=== PATIENT | male | born 1960 | race Caucasian/White ===

== ENCOUNTER 2019-07-16 06:00 | Day surgery (SDC) | payer BC ==
[~2019-07-16 06:00] MED LIST: CEFAZOLIN 2 Gram 2 GM/50 ML BAG IVPB ONE; FAMOTIDINE 20MG TABLET PO ONE; MECLIZINE 25 MG TABLET PO ONE; METOCLOPRAMIDE 10 MG TABLET PO ONE
[2019-07-16] MEDS ORDERED: EPHEDRINE SULFATE 50 MG/ML ML IV ONE (06:01)
[2019-07-16] MEDS ORDERED: PROPOFOL 10 MG/ML VIAL IV ONE (06:01)
[2019-07-16] MEDS ORDERED: DEXAMETHASONE 4 MG/ML 1ML VIAL IVP ONE (06:01)
[2019-07-16] MEDS ORDERED: LIDOCAINE 2% MDV (20MG/ML) 20ML VIAL IV ONE (06:01)
[2019-07-16] MEDS ORDERED: MIDAZOLAM HCL 2MG/2ML VIAL IV ONE (06:01)
[2019-07-16] MEDS ORDERED: ROPIVACAINE HCL (NAROPIN) /PF 5MG/ML 20ML VIAL IV ONE (06:01)
[2019-07-16] MEDS ORDERED: RINGERS SOLUTION,LACTATED 1,000 ML IV ONE ×2 (06:40→08:15)
[2019-07-16] MEDS ORDERED: TRANEXAMIC ACID 1,000 MG/10 ML ML IV ONE ×2 (08:28→11:30)
[2019-07-16] MEDS ORDERED: ZOLPIDEM TARTRATE 5 MG TABLET PO PRN (11:19)
[2019-07-16] MEDS ORDERED: SENNOSIDES/DOCUSATE SODIUM UD CAPSULE PO PRN (11:20)
[2019-07-16] MEDS ORDERED: MAGNESIUM HYDROXIDE 30 ML UDC PO PRN (11:21)
[2019-07-16] MEDS ORDERED: AL HYDROX/MAG HYDROX 30ML UD PO PRN (11:23)
[2019-07-16] MEDS ORDERED: HYDROCODONE/APAP 5/325MG TABLET PO PRN ×2 (11:30)
[2019-07-16] MEDS ORDERED: TRAMADOL HCL 50 MG TABLET PO PRN ×2 (11:30)
[2019-07-16] MEDS ORDERED: ONDANSETRON HCL IV 4 MG/2 ML VIAL IVP PRN (11:30)
[2019-07-16] MEDS ORDERED: ACETAMINOPHEN 325 MG TAB PO PRN (11:30)
[2019-07-16] MEDS ORDERED: CEFAZOLIN 2 Gram 2 GM/50 ML BAG IVPB SCH (11:30)
[2019-07-16] MEDS ORDERED: METOCLOPRAMIDE HCL 10 MG/2 ML VIAL IVP PRN (11:30)
[2019-07-16] MEDS ORDERED: DIPHENHYDRAMINE HCL 25 MG CAPSULE PO PRN (11:30)
[2019-07-16] MEDS: HYDROMORPHONE HCL 2 MG/ML VIAL IV PRN ×2 (11:37→14:28)
[2019-07-16] MEDS: OXYCODONE HCL/APAP 5MG/325MG TABLET PO PRN ×3 (11:39→18:38)
[2019-07-16] MEDS: RINGERS SOLUTION,LACTATED 1,000 ML IV SCH ×2 (13:32→23:35)
[2019-07-16] MEDS ORDERED: FLU VAC QS 2019-20 (INPT, 6MO+) 60MCG/0.5ML IM ONE (13:41)
--- NOTE | 2019-07-16 14:37 | Rehab Evaluation ---
Patient Information - Patient Information Diagnosis: R Knee DJD Ordered Treatment: PT Evaluate and Treat Status: Initial Evaluation Surgery: Yes (R TKA) Date of Surgery: 07/16/19 Past Medical/Surgical Hx: PAST MEDICAL/SURGICAL HISTORY Past Surgical History ORAL SX C SCOPE PMH - Respiratory Hx Respiratory Disorders No PMH - Cardiovascular Hx Cardiovascular Disorders Yes Hx Hypertension Yes: WELL CONTROLLED WITH MEDS Exercise Tolerance Good PMH - Neuro Hx Neurological Disorders No PMH - GI Hx Gastrointestinal Disorders No PMH - Hx Genitourinary Disorders No PMH - Endocrine Hx Endocrine Disorders No PMH - Musculoskeletal Hx Musculoskeletal Disorders Yes Hx Arthritis Yes: ALL JOINTS SPINE RA PMH - Psych Hx Psychiatric Problems No PMH - Hematology/Oncology Hx Hematology/Oncology No Disorders Premorbid Status: Detail (Patient was independent in ADLs prior to TKA procedure.) Social History: Detail (Patient lives in a 2 story home with his spouse. There is a flight of stairs to the upstairs but patient stated that he will be staying downstairs until he is comfortable with climbing and descending a full flight of stairs. There are 4 steps to enter at the front of the house with a railing on the R and L, with one reachable at a time. In the bathroom, there is a hand held shower head available, the toilet is of standard height, and there are no grab bars present. Patient will have assistance at home with ADLs and transportation following surgery.) Precautions: [place], Fall, Other (WBAT on the R LE) - Time With Patient Total Time Spent With Patient (Min): 30 Treatment Procedures: Detail (Initial Evaluation; low complexity The patient was left in the bedside chair with his call light and bedside table within reach. The patient's spouse was in the room with him and the nursing staff was notified of his position.) Subjective Information - Subjective Information Per Patient (Patient stated that he had 4/10 pain in his R knee at the time of the evaluation.) Objective Data - Pain Pain Present: Yes Pain Scale Used: Numeric (1 - 10) (4/10) - Mental Status Patient Orientation: Oriented x3 - Visual Perception Appears within normal limits for therapeutic activities - ROM Not within normal limits (R Knee ROM limited as expected s/p R TKA procedure. R hip and ankle, and L LE ROM is within functional limits.) - Strength/Tone Not within normal limits (R knee strength limited as expected s/p R TKA procedure. R hip and ankle, and L LE strength is within functional limits.) - Bed Mobility Independent (Patient was not assessed for bed mobility as he was in the bedside chair when PT staff arrived and requested to go back to the bedside chair following treatment. Patient was able to independently move in and out of the chair.) - Transfers Independent (Patient was independent in transferring from sit to stand and stand to sit.) - Balance Balance Sitting: Good Balance Standing: Good - Sensation Intact - Gait Detail (Patient was able to ambulate 100 feet with a front wheeled walker using WBAT on the R LE. Supervision of 1 was needed during ambulation. Patient needed verbal cuing for keeping his feet within the walker space during gait and for not pushing the walker too far out in front of him.) Therapy Assessment - Therapy Assessment Detail (Patient presents with decreased range of motion and strength in the right knee that make him a good candidate for inpatient physical therapy. Patient will progress toward meeting goals by the time of discharge.) Patient Education - Patient Education Teaching Topic: Exercise/Activity (Reviewed patient's pre-operative exercises; he demonstrated good understanding.) Response: Return Demonstration Teaching Method: Discussion Teaching Recipient: Patient Barriers To Learning: None Problem List - Problem List Physical Therapy Problem List: Detail (1. Decreased R knee ROM 2. Decreased R knee strength 3. Pain in the R knee 4. Decreased ability to complete stair training) Goals - Goals Physical Therapy Goals: 1. Patient will be independent in his HEP to help improve strength and ROM of the R knee needed to be able to complete ADLs. 2. Patient will be able to ascend and descend 4 stairs with proper technique to be able to enter and leave his home. 3. Patient will be able to ambulate community distances with a 2-wheeled walker for endurance with ambulation in the community. Prognosis - Prognosis Good Plan - Plan Physical Therapy Plan: Patient will be seen for 1-2 sessions for gait training, stair training, therapeutic exercise, and HEP instruction.
[2019-07-16] MEDS: CEFAZOLIN 2 Gram 2 GM/50 ML BAG IVPB SCH (17:02)
[2019-07-16] MEDS: ASPIRIN 325 MG TAB ENTERIC-COATED PO SCH (21:26)
[2019-07-16] MEDS ORDERED: LISINIPRIL PO SCH (22:00)
[2019-07-16] MEDS ORDERED: MELOXICAM 15 MG PO SCH (22:00)
[2019-07-16] MEDS ORDERED: HYDROCHLOROTHIAZIDE 12.5 MG PO SCH (22:00)
[2019-07-17] MEDS: OXYCODONE HCL/APAP 5MG/325MG TABLET PO PRN ×3 (00:20→12:48)
[2019-07-17] MEDS: CEFAZOLIN 2 Gram 2 GM/50 ML BAG IVPB SCH ×2 (00:21→10:45)
[2019-07-17] MEDS: RINGERS SOLUTION,LACTATED 1,000 ML IV SCH (05:22)
[2019-07-17 06:49] LABS: HEMATOCRIT 33.9 % (42.0-52.0); HEMOGLOBIN 10.4 gm/dl (14.0-18.0); MEAN CELL VOLUME 91.4 fl (81-97); MEAN CORPUSCULAR HGB CONC 30.7 g/dl (32-36); MEAN PLATELET VOLUME 9.6 fl (7.4-10.4); PLATELET COUNT 174 K/uL (130-400); RED BLOOD COUNT 3.71 M/uL (4.40-5.70); RED CELL DISTRIBUTION WIDTH 13.3 % (11.5-14.5); WHITE BLOOD COUNT W/O DIFF 8.2 K/uL (4.2-12.2)
--- NOTE | 2019-07-17 09:47 | Physical Therapy Tx Note ---
Physical Therapy Tx Note - Treatment Note Total Time Spent With Patient: 30 Physical Therapy Tx Note: Detail (Patient stated that he a little pain in his R knee today and that it hurt at the upper part of the knee near the distal part of the quadricep. Treatment today consisted of ascending and descending a flight of 3 and a flight of 7 stairs. Patient used a cane and the wall when negotiating stairs to practice the way his stairs at home are setup. Supervision of 1 was needed to complete stair training. Patient's spouse was present during stair training to observe proper technique and to help patient at home if needed. Patient was able to ambulate indpendently 200+ feet with front wheeled walker and WBAT on the R LE. Patient's HEP was reviewed and he understood and demonstrated exercises correctly. Patient has met all inpatient goals at this time. He was left in the bedside chair with the bedside table and call light within reach. The patient's spouse was in the room with him and the nursing staff was notified of his position.) Physical Therapy Problem List: Detail (1. Decreased R knee ROM 2. Decreased R knee strength 3. Pain in the R knee 4. Decreased ability to complete stair training) Physical Therapy Goals: 1. Patient will be independent in his HEP to help improve strength and ROM of the R knee needed to be able to complete ADLs. GOAL MET. 2. Patient will be able to ascend and descend 4 stairs with proper technique to be able to enter and leave his home. GOAL MET. 3. Patient will be able to ambulate community distances with a 2-wheeled walker for endurance with ambulation in the community. GOAL MET Prognosis: Good Physical Therapy Plan: Patient has met all inpatient goals at this time, and will with continue with outpatient PT.
--- NOTE | 2019-07-17 10:04 | Rehab Evaluation ---
Patient Information - Patient Information Diagnosis: R Knee DJD Ordered Treatment: OT Evaluate and Treat Status: Initial Evaluation Surgery: Yes (R TKA) Date of Surgery: 07/16/19 Past Medical/Surgical Hx: PAST MEDICAL/SURGICAL HISTORY Past Surgical History ORAL SX C SCOPE PMH - Respiratory Hx Respiratory Disorders No PMH - Cardiovascular Hx Cardiovascular Disorders Yes Hx Hypertension Yes: WELL CONTROLLED WITH MEDS Exercise Tolerance Good PMH - Neuro Hx Neurological Disorders No PMH - GI Hx Gastrointestinal Disorders No PMH - Hx Genitourinary Disorders No PMH - Endocrine Hx Endocrine Disorders No PMH - Musculoskeletal Hx Musculoskeletal Disorders Yes Hx Arthritis Yes: ALL JOINTS SPINE RA PMH - Psych Hx Psychiatric Problems No PMH - Hematology/Oncology Hx Hematology/Oncology No Disorders Premorbid Status: Detail (Patient was independent in ADLs prior to TKA procedure.) Social History: Detail (Patient lives in a 2 story home with his spouse. There is a flight of stairs to the upstairs but patient stated that he will be staying downstairs until he is comfortable with climbing and descending a full flight of stairs. There are 4 steps to enter at the front of the house with a railing on the R and L, with one reachable at a time. In the bathroom, there is a hand held shower head available, the toilet is of standard height, and there are no grab bars present. Patient will have assistance at home with ADLs and transportation following surgery.) Precautions: [place], Fall, Other (WBAT on the R LE) - Time With Patient Total Time Spent With Patient (Min): 15 Treatment Procedures: Detail (eval LOW OT) Subjective Information - Subjective Information Per Patient Objective Data - Pain Pain Present: Yes Pain Intensity: 2 (R knee) Pain Scale Used: Numeric (1 - 10) - Mental Status Patient Orientation: Oriented x3 - Visual Perception Appears within normal limits for therapeutic activities (Pt wears glasses) - ROM Within normal limits (BUE's) - Strength/Tone Within normal limits (BUE's) - Coordination Appears within normal limits for therapeutic activities - Transfers Independent (sit<>stand no walker use required) - Balance Balance Sitting: Good - ADL's/IADL's Detail (Pt donned SS shirt, underwear, shorts, socks and shoes independently. Pt familiar and able to verbalize understanding of modified drsg technique. Independent with UB and LB drsg. Discussed wrapping technique for right knee if planning on showering. Pt verbalized understanding.) Therapy Assessment - Therapy Assessment Detail (Patient safe and independent with UB and LB drsg. He will have assistance available for 1 week if needed. No further inpatient OT needed at this time.) Patient Education - Patient Education Teaching Topic: Other (modified drsg technique) Response: Return Demonstration Teaching Method: Discussion Teaching Recipient: Patient, Significant Other Barriers To Learning: None Problem List - Problem List Physical Therapy Problem List: Detail (1. Decreased R knee ROM 2. Decreased R knee strength 3. Pain in the R knee 4. Decreased ability to complete stair training) Goals - Goals Physical Therapy Goals: 1. Patient will be independent in his HEP to help improve strength and ROM of the R knee needed to be able to complete ADLs. GOAL MET. 2. Patient will be able to ascend and descend 4 stairs with proper technique to be able to enter and leave his home. GOAL MET. 3. Patient will be able to ambulate community distances with a 2-wheeled walker for endurance with ambulation in the community. GOAL MET Prognosis - Prognosis Good Plan - Plan Physical Therapy Plan: Patient has met all inpatient goals at this time, and will with continue with outpatient PT. Occupational Therapy Plan: Patient safe and independent with drsg. No further OT needed at this time.
[2019-07-17] MEDS: ASPIRIN 325 MG TAB ENTERIC-COATED PO SCH (10:12)
--- NOTE | 2019-07-17 15:41 | Operative Note ---
DATE OF SURGERY: 07/16/2019 SURGEON: Abelino Price DO PREOPERATIVE DIAGNOSIS: Osteoarthritis of the right knee. POSTOPERATIVE DIAGNOSIS: Osteoarthritis of the right knee. OPERATION: Right total knee arthroplasty. DESCRIPTION OF PROCEDURE: This 58-year-old male was taken to the operating room and placed in the supine position on the operating room table. Spinal anesthetic was administered. The right lower extremity was elevated. It was prepped with Hibiclens and draped in the usual sterile fashion. All scrub personnel wore personal isolation suits. An anterior longitudinal midline incision was made followed by a medial parapatellar arthrotomy incision. An intracondylar drill hole was made for the intramedullary alignment abel in the femur and because of a slight flexion contracture, we took off an additional millimeter of bone off the distal femur. Therefore, a 6-degree valgus 10 mm cut was made on the distal femur. The wafer of bone was removed. Sizing jig was affixed and size 70 was seen to be the appropriate size. The 4-in-1 cutting block was then pinned in 3 degrees of external rotation. The appropriate cuts were made. Marked osteophyte formation was noted in the intracondylar notch. We then directed our attention to the proximal tibia noticing that the patient had had complete disruption of the anterior cruciate ligament in the past. The tibia was subluxed anteriorly. Cobra retractor replaced. Collateral ligament retractors placed, and the extramedullary tibial alignment guide was affixed. We referenced a 10 mm cut off the lateral tibial plateau. This, however, was not enough bone leaving uncut bone in the medial tibial plateau because of bone loss there. An additional 2 mm was taken which got just below the subchondral bone of the proximal tibia medially. After the wafers of bone were removed, we removed remnants of the menisci and osteophytes from the posterior aspect of the joint. The tibia was sized to a size 79 and the stem punch was used. The wound was copiously irrigated with lactated Ringer's solution. Trial components were inserted and we found the patient's PCL to be too contracted kicking out the bearing anteriorly. Therefore, a posterior stabilized femoral component was used after the appropriate notch cut was made. This alleviated that problem, and the patella was cut and restored to anatomic height plus 1 mm with a 37 x 8.6 mm trial. A 14 mm bearing was placed, which gave us excellent stability and full range of motion. The wound was then copiously irrigated with pulse lavage lactated Ringer's solution removing all debris from the joint. We had also drilled holes in the medial tibial plateau to get good penetration of the cement into the medial tibial plateau. After copious irrigation of all bony surfaces, with the trial components in place, we found that excellent caodaism of full extension and flexion easily to 135 degrees was possible. No instability was identified. All bony surfaces were dried after irrigation, and excess cement was removed after the insertion of each component. We placed the tibial baseplate first followed by the insertion of the femoral component, patella, and then the tibial bearing was slid into place without difficulty. Once all components had been inserted and the cement hardened, the knee was again taken through range of motion and found to be stable. The wound was again copiously irrigated with lactated Ringer's solution. It was suctioned and a drain placed in the wound. The arthrotomy incision was closed with a #2 Vicryl. The subcutaneous tissue was closed with 0 Vicryl and the skin was stapled. Polar Care was applied. The patient was taken to the recovery room in satisfactory condition. GROSS PATHOLOGY: Severe osteoarthritis of the right knee. Tricompartmental full- thickness articular cartilage loss was noted. Extensive wear of the medial tibial plateau was noted. Because of contracture of his PCL, it was necessary to use a posterior stabilized component. Final components inserted were a [employer] size 70 posterior stabilized femoral component, a 79 tibial baseplate, a 14 x 79 posterior stabilized tibial bearing, and a 37 x 8.6 mm patella was used. SKYLER
--- NOTE | 2019-07-20 13:11 | Discharge Summary ---
DATE OF ADMISSION: 07/16/2019 DATE OF DISCHARGE: 07/17/2019 ADMITTING DIAGNOSIS: Osteoarthritis of the right knee. DISCHARGE DIAGNOSIS: Osteoarthritis of the right knee. OPERATIVE PROCEDURE: Right total knee arthroplasty. HOSPITAL COURSE: This 58-year-old male was admitted to the hospital for a total knee arthroplasty, tolerated the operative procedure well. He was discharged first postoperative day following the drain removal after clearing physical therapy. He will have outpatient physical therapy. He was instructed to use his ROHIT hose during the day and remove them at night. He will take aspirin 325 mg daily for 4 weeks. He will take Percocet 5/325 one to two every 6 hours as necessary for pain, #40. Routine wound care instructions were given. He will follow up in 2 weeks. Should he have any problems prior to being seen, he was instructed to call my office. SKYLER
== END 2019-07-17 14:11 | disposition home or self-care (01) ==
LOC: SUR 06:00 → MEDSURG 10:13 → SUR 07-17 14:11
PROVIDERS: ATTEND Orthopaedic Surgery
DX: M17.11 Unilateral primary osteoarthritis, right knee (principal); I10 Essential (primary) hypertension; M06.9 Rheumatoid arthritis, unspecified; Z23 Encounter for immunization
CPT/HCPCS: 27447; 01402; 64447; 85025; 36416; 82948; 90686; 76942; J1170; J0690 ×2; J2795; J7120

== ENCOUNTER 2019-08-27 06:04 | Day surgery (SDC) | payer BC ==
[2019-08-27] MEDS ORDERED: ROPIVACAINE HCL (NAROPIN) /PF 5MG/ML 20ML VIAL IV ONE (06:05)
[2019-08-27] MEDS ORDERED: LIDOCAINE 2% MDV (20MG/ML) 20ML VIAL IV ONE (06:05)
[2019-08-27] MEDS ORDERED: DEXAMETHASONE 4 MG/ML 1ML VIAL IVP ONE (06:05)
[2019-08-27] MEDS ORDERED: MIDAZOLAM HCL 2MG/2ML VIAL IV ONE (06:05)
[2019-08-27] MEDS ORDERED: PROPOFOL 10 MG/ML VIAL IV ONE (06:05)
[2019-08-27] MEDS ORDERED: RINGERS SOLUTION,LACTATED 1,000 ML IV ONE (06:30)
[2019-08-27] MEDS ORDERED: TRANEXAMIC ACID 1,000 MG/10 ML ML IVPB ONE (08:45)
[2019-08-27] MEDS ORDERED: AL HYDROX/MAG HYDROX 30ML UD PO PRN (10:15)
[2019-08-27] MEDS ORDERED: MAGNESIUM HYDROXIDE 30 ML UDC PO PRN (10:15)
[2019-08-27] MEDS ORDERED: ONDANSETRON HCL IV 4 MG/2 ML VIAL IVP PRN (10:15)
[2019-08-27] MEDS ORDERED: ZOLPIDEM TARTRATE 5 MG TABLET PO PRN (10:15)
[2019-08-27] MEDS ORDERED: DIPHENHYDRAMINE HCL 25 MG CAPSULE PO PRN (10:15)
[2019-08-27] MEDS ORDERED: NALOXONE 0.4 MG/1 ML VIAL IVP PRN (10:15)
[2019-08-27] MEDS ORDERED: METOCLOPRAMIDE HCL 10 MG/2 ML VIAL IVP PRN (10:15)
[2019-08-27] MEDS ORDERED: HYDROMORPHONE HCL 2 MG/ML VIAL IV PRN (10:15)
[2019-08-27] MEDS ORDERED: SENNOSIDES/DOCUSATE SODIUM UD CAPSULE PO PRN (10:15)
[2019-08-27] MEDS ORDERED: RINGERS SOLUTION,LACTATED 1,000 ML IV PRN (10:47)
[2019-08-27] MEDS ORDERED: TRANEXAMIC ACID 1,000 MG in 0.9 % SODIUM CHLORIDE 100ML 100 ML IVPB ONE (11:00)
[2019-08-27] MEDS: HYDROCODONE/APAP 5/325MG TABLET PO PRN ×2 (12:16→18:11)
[2019-08-27] MEDS: RINGERS SOLUTION,LACTATED 1,000 ML IV SCH (12:21)
[2019-08-27] MEDS: OXYCODONE HCL/APAP 5MG/325MG TABLET PO PRN ×2 (13:51→21:13)
[2019-08-27] MEDS: CEFAZOLIN 2 Gram 2 GM/50 ML BAG IVPB SCH (15:30)
--- NOTE | 2019-08-27 17:44 | Rehab Evaluation ---
Patient Information - Patient Information Diagnosis: L Knee DJD Ordered Treatment: PT Evaluate and Treat Status: Initial Evaluation Surgery: Yes (L TKA) Date of Surgery: 08/27/19 Past Medical/Surgical Hx: PAST MEDICAL/SURGICAL HISTORY Surgery to Affected Area? No Recent Surgery? Past Surgical History Right knee 07/16/19 ORAL SX PMH - Respiratory Hx Respiratory Disorders No PMH - Cardiovascular Hx Cardiovascular Disorders Yes Hx Hypertension Yes: WELL CONTROLLED WITH MEDS Exercise Tolerance Good PMH - Neuro Hx Neurological Disorders No PMH - GI Hx Gastrointestinal Disorders No PMH - Hx Genitourinary Disorders No PMH - Endocrine Hx Endocrine Disorders No PMH - Musculoskeletal Hx Musculoskeletal Disorders Yes Hx Arthritis Yes: ALL JOINTS SPINE RA PMH - Psych Hx Psychiatric Problems No PMH - Hematology/Oncology Hx Hematology/Oncology No Disorders Premorbid Status: Detail (Patient was independent in ADLs and ambulating without an AD prior to surgery.) Social History: Detail (Patient lives in a 2-story home with his . He reported that he won't have to use the second floor following discharge. There are 3 steps to enter the home with a railing on the R. The bathroom has a standard height toilet and there are no grab bars present but he stated there is a vanity that he can hang onto. There is a tub/shower combination with a hand held shower head. He will have assistance with meals and transportation following discharge. He has a front-wheeled walker and a straight cane available to use. He is scheduled for outpatient PT following DC.) Precautions: [place], Fall, Other (WBAT on L LE) - Time With Patient Total Time Spent With Patient (Min): 30 Treatment Procedures: Detail (Initial evaluation; low complexity The patient was left in the recliner with the call light and bedside table within reach. His was in the room with him and the nursing staff was notified of his position.) Subjective Information - Subjective Information Per Patient (Patient reported that he was feeling a little "fuzzy" and had pain in the L knee.) Objective Data - Pain Pain Present: Yes (Pain in L knee) Pain Scale Used: Numeric (1 - 10) (4/10 in L knee) - Mental Status Patient Orientation: Oriented x3 - Visual Perception Appears within normal limits for therapeutic activities - ROM Not within normal limits (L knee ROM is limited as expected s/p L TKA procedure. L hip and ankle, and R LE ROM is within functional limits.) - Strength/Tone Not within normal limits (L knee strength is limited as expected s/p L TKA procedure. L hip and ankle and R LE strength is within functional limits.) - Coordination Appears within normal limits for therapeutic activities - Bed Mobility Needs Assist (Patient required assistance in moving the L LE to the edge of the bed. He used the trapeze to pull himself up in bed.) - Transfers Independent (Patient was independent in sit to stand and stand to sit transfers.) - Balance Balance Sitting: Good Balance Standing: Good - Sensation Intact - Gait Detail (Patient ambulated 10 feet to and from the bathroom using a front-wheeled walker and contact guard of 1 and WBAT on the L LE. He reported that he felt okay during ambulation.) Therapy Assessment - Therapy Assessment Detail (Patient presents with L knee pain, decreased strength and ROM in the L knee, and gait abnormalities that make him a good candidate for inpatient therapy. He will progress towards meeting his inpatient therapy goals by the time of discharge.) Problem List - Problem List Physical Therapy Problem List: Detail (1. L knee pain 2. Decreased L knee strength and ROM 3. Gait abnormalities 4. Decreased tolerance for stairs) Goals - Goals Physical Therapy Goals: 1. Patient will demonstrate correct technique of HEP exercises to improve L knee ROM and strength following discharge. 2. Patient will be able to ambulate household distances with supervision with a front- wheeled walker to get around his home. 3. Patient will be able to ascend and descend 3 stairs with supervision to get in and out of his home. Prognosis - Prognosis Good Plan - Plan Physical Therapy Plan: Patient will be seen for 1-2 more sessions tomorrow for gait training, stair training, therapeutic exercises and activities, and HEP instruction.
[2019-08-27] MEDS: ASPIRIN 325 MG TAB ENTERIC-COATED PO SCH (21:13)
[2019-08-27] MEDS: SULFASALAZINE 500MG PO SCH (21:13)
[2019-08-27] MEDS ORDERED: MELOXICAM 15MG PO SCH (22:00)
[2019-08-27] MEDS ORDERED: HYDROCHLOROTHIAZIDE 12.5 MG PO SCH (22:00)
[2019-08-27] MEDS ORDERED: LISINOPRIL 20MG PO SCH (22:00)
[2019-08-28] MEDS: CEFAZOLIN 2 Gram 2 GM/50 ML BAG IVPB SCH ×2 (00:14→07:44)
[2019-08-28] MEDS: HYDROCODONE/APAP 5/325MG TABLET PO PRN (01:43)
[2019-08-28] MEDS: RINGERS SOLUTION,LACTATED 1,000 ML IV SCH (06:01)
[2019-08-28] MEDS: OXYCODONE HCL/APAP 5MG/325MG TABLET PO PRN (06:06)
[2019-08-28 06:32] LABS: HEMATOCRIT 34.8 % (42.0-52.0); HEMOGLOBIN 11.1 gm/dl (14.0-18.0); MEAN CELL VOLUME 88.8 fl (81-97); MEAN CORPUSCULAR HEMOGLOBIN 28.3 pg (27-33); MEAN CORPUSCULAR HGB CONC 31.9 g/dl (32-36); MEAN PLATELET VOLUME 9.6 fl (7.4-10.4); PLATELET COUNT 180 K/uL (130-400); RED BLOOD COUNT 3.92 M/uL (4.40-5.70); RED CELL DISTRIBUTION WIDTH 13.4 % (11.5-14.5); WHITE BLOOD COUNT W/O DIFF 9.2 K/uL (4.2-12.2)
[2019-08-28] MEDS ORDERED: OXYCODONE HCL/APAP 5MG/325MG TABLET PO PRN (09:04)
--- NOTE | 2019-08-28 09:46 | Physical Therapy Tx Note ---
Physical Therapy Tx Note - Treatment Note Tolerated: Good Total Time Spent With Patient: 25 Physical Therapy Tx Note: Detail (Patient reported that he had some pain in his L knee this morning. He was independent in bed mobility and moving himself to sitting at the edge of the bed. He ambulated 100 feet with a front-wheeled walker independently WBAT on the L LE. Stair training was completed on 3 stairs with patient demonstrating good technique with supervision. In bed, his HEP was reviewed. Pt demonstrated correct technique of exercises and was shown how to do a straight leg raise using a strap. He was independent in moving from sitting to supine, sit to stand, and stand to sit. The patient was left in bed with his call light and bedside table within reach and his in the room with him.) Physical Therapy Problem List: Detail (1. L knee pain 2. Decreased L knee strength and ROM 3. Gait abnormalities 4. Decreased tolerance for stairs) Physical Therapy Goals: 1. Patient will demonstrate correct technique of HEP exercises to improve L knee ROM and strength following discharge. GOAL MET. 2. Patient will be able to ambulate household distances with supervision with a front-wheeled walker to get around his home. GOAL MET. 3. Patient will be able to ascend and descend 3 stairs with supervision to get in and out of his home. GOAL MET Physical Therapy Plan: Patient has met all inpatient therapy goals at this time. He will continue with outpatient PT following DC.
[2019-08-28] MEDS: ASPIRIN 325 MG TAB ENTERIC-COATED PO SCH (09:54)
[2019-08-28] MEDS: SULFASALAZINE 500MG PO SCH (09:55)
--- NOTE | 2019-08-28 12:15 | Rehab Evaluation ---
Patient Information - Patient Information Diagnosis: L Knee DJD Ordered Treatment: OT Evaluate and Treat Status: Initial Evaluation Surgery: Yes (L TKA) Date of Surgery: 08/27/19 Past Medical/Surgical Hx: PAST MEDICAL/SURGICAL HISTORY Surgery to Affected Area? No Recent Surgery? Past Surgical History Right knee 07/16/19 ORAL SX PMH - Respiratory Hx Respiratory Disorders No PMH - Cardiovascular Hx Cardiovascular Disorders Yes Hx Hypertension Yes: WELL CONTROLLED WITH MEDS Exercise Tolerance Good PMH - Neuro Hx Neurological Disorders No PMH - GI Hx Gastrointestinal Disorders No PMH - Hx Genitourinary Disorders No PMH - Endocrine Hx Endocrine Disorders No PMH - Musculoskeletal Hx Musculoskeletal Disorders Yes Hx Arthritis Yes: ALL JOINTS SPINE RA PMH - Psych Hx Psychiatric Problems No PMH - Hematology/Oncology Hx Hematology/Oncology No Disorders Premorbid Status: Detail (Patient was independent in ADLs and ambulating without an AD prior to surgery.) Social History: Detail (Patient lives in a 2-story home with his . He reported that he won't have to use the second floor following discharge. There are 3 steps to enter the home with a railing on the R. The bathroom has a standard height toilet and there are no grab bars present but he stated there is a vanity that he can hang onto. There is a tub/shower combination with a hand held shower head. He will have assistance with meals and transportation following discharge. He has a front-wheeled walker and a straight cane available to use. He is scheduled for outpatient PT following DC. The patient will have assist from and/or others for at least a week following DC.) Precautions: Amanda, Fall, Other (WBAT on L LE) - Time With Patient Total Time Spent With Patient (Min): 22 (1 OT eval low complexity) Subjective Information - Subjective Information Per Patient (Ok to see per [facility] Mc[facility]. Pt agreeable to OT dae, spouse present.) Objective Data - Pain Pain Present: Yes Pain Scale Used: Numeric (1 - 10) (3/10) - Mental Status Patient Orientation: Oriented x3 - Visual Perception Appears within normal limits for therapeutic activities - ROM Within normal limits (B UEs) - Strength/Tone Within normal limits (B UEs) - Coordination Appears within normal limits for therapeutic activities - Bed Mobility Needs Assist (Pt requires assist to elevate legs in/out of bed.) - Transfers Needs Assist (Sit to/from stand from EOB and BSC over toilet to FWW with supervision. Pt demos good use of walker and grab bars for safety.) - Balance Balance Sitting: Fair Balance Standing: Fair - Sensation Intact - Gait Detail (Fxl mobility within bedroom with FWW and supervision. Pt demos good use of grab bar and walker for safety during functional TFs.) - ADL's/IADL's Detail (OT educates Pt on modified technique for LB dressing, Pt demos good understanding and reports he knows how to LB dress d/t previous R TKA 6 wks ago. Pt also verbalizes understanding of tedhose wearing schedule.) Therapy Assessment - Therapy Assessment Detail (Pt tolerates OT eval well, demos good safety awareness, and demos ability to complete ADLs with minimal assist which will be available 20/05 at DC. No further OT needs identified and Pt appears ready for DC home with spouse when medically ready.) Patient Education - Patient Education Teaching Topic: Other (modified techniques) Response: Return Demonstration, Verbalize Understanding Teaching Method: Discussion, Demonstration Teaching Recipient: Patient Barriers To Learning: None Problem List - Problem List Physical Therapy Problem List: Detail (1. L knee pain 2. Decreased L knee strength and ROM 3. Gait abnormalities 4. Decreased tolerance for stairs) Occupational Therapy Problem List: Detail (No further IP OT needs identified.) Goals - Goals Physical Therapy Goals: 1. Patient will demonstrate correct technique of HEP exercises to improve L knee ROM and strength following discharge. GOAL MET. 2. Patient will be able to ambulate household distances with supervision with a front-wheeled walker to get around his home. GOAL MET. 3. Patient will be able to ascend and descend 3 stairs with supervision to get in and out of his home. GOAL MET Occupational Therapy Goals: No further IP OT needs/goals identified. Prognosis - Prognosis Good Plan - Plan Physical Therapy Plan: Patient has met all inpatient therapy goals at this time. He will continue with outpatient PT following DC. Occupational Therapy Plan: No further skilled inpatient OT needs identified. DC OT services. Thank you for this referral.
--- NOTE | 2019-08-31 08:46 | Discharge Summary ---
DATE OF DISCHARGE: 08/28/2019 DATE OF ADMISSION: 08/27/2019 ADMITTING DIAGNOSIS: OSTEOARTHRITIS OF THE LEFT KNEE. DISCHARGE DIAGNOSIS: OSTEOARTHRITIS OF THE LEFT KNEE. This 59-year-old male was admitted to the hospital for elective total knee arthroplasty and tolerated the operative procedure well. He progressed satisfactorily with physical therapy. Drain was removed on the first postoperative day. The calf was soft. He had no sign of complication. No evidence of DVT. He will be discharged on Percocet 5/325 #30 one every six hours as necessary for pain. Also instructed that they could cut the pain pills in half if they chose to do so. He will have outpatient physical therapy. He will wear his ROHIT hose during the day and remove them at night. He is to take aspiring 325 mg daily for four weeks. Routine wound care instructions are given. Should he have any problems prior to being seen he is instructed to contact me. He will follow-up in two weeks. JOB NUMBER: [id number] MTDD
--- NOTE | 2019-08-31 12:21 | Operative Note ---
DATE OF SURGERY: 08/27/2019 SURGEON: Abelino Price DO PREOPERATIVE DIAGNOSIS: Osteoarthritis of the left knee. POSTOPERATIVE DIAGNOSIS: Osteoarthritis of the left knee. OPERATION: Left total knee arthroplasty. DESCRIPTION OF PROCEDURE: This 59-year-old male was taken to the operating room and placed in the supine position on the operating room table. Spinal anesthesia was induced by the department of anesthesia. The left lower extremity was then elevated. It was prepped with Hibiclens and draped in the usual sterile fashion and then it was exsanguinated and the tourniquet inflated to 300 mmHg. All scrub personnel wore personal isolation suits. An anterior longitudinal midline incision was made followed by a medial parapatellar arthrotomy incision. An intracondylar drill hole was made for the intramedullary alignment abel, and a 6-degree valgus 10 mm cut was made in the distal femur because of mild flexion contracture. The sizing jig was affixed and a size 70 was seen to be the appropriate size. The 4-in-1 cutting block was then pinned in 3 degrees of external rotation. The appropriate cuts were made. We then directed our attention to the proximal tibia, and an extramedullary alignment guide was used to cut the proximal tibia referencing a 10 mm cut off the lateral tibial plateau. This got us just below the bone loss in the subchondral bone on the medial side. The wafer of bone was removed. The box was placed on the distal femur for cutting the posterior stabilized component. This was easily accomplished and then removed. The osteophytes and remnants of the menisci were removed after the tibia had been cut. A small cyst in the center of the tibia which was about 3 mm deep was curetted to healthy bone. The contents were subsequently removed. The flexion/extension gaps were checked and found to be equal. We subsequently placed trial components, and a size 16 bearing was seen to be the appropriate size. The patella was then measured, cut, and restored to anatomic height with a 37 x 7.8 mm patella. The wound was then copiously irrigated with pulse lavage lactated Ringer's solution after all trial components had been removed. All components were cemented into place and excess cement was removed after the insertion of each component. All bony surfaces were dried before implantation. We began with the tibia and a size 79 tibia was cemented into place followed by the insertion of the femoral component and subsequently the 16 mm posterior stabilized plus E1 bearing was inserted and 37 x 7.8 mm patella was cemented. Once the cement had hardened, the knee was again taken through range of motion and felt to be stable. The wound again copiously irrigated. A bone plug was placed in the intramedullary canal and the drain placed through a separate stab incision. The wound was suctioned to remove all fluid from the knee and the arthrotomy incision was closed with a #2 Vicryl. The subcutaneous tissue was closed with 0 Vicryl, and the skin was stapled. Polar Care applied. The patient was taken to the recovery room in satisfactory condition. GROSS PATHOLOGY: Severe osteoarthritis of the left knee was present which showed no articular cartilage present in the knee. The patient had bone loss on the medial tibial plateau. Final components inserted were a [employer] size 70 posterior stabilized femoral component, a 79 tibial baseplate, a 16 mm posterior stabilized E1 bearing, and a 37 x 7.8 mm patella was used. SKYLER
== END 2019-08-28 13:50 | disposition home or self-care (01) ==
LOC: SUR 06:04 → MEDSURG 10:05 → SUR 08-28 13:50
PROVIDERS: ATTEND Orthopaedic Surgery
DX: M17.12 Unilateral primary osteoarthritis, left knee (principal); I10 Essential (primary) hypertension; M06.9 Rheumatoid arthritis, unspecified
CPT/HCPCS: 27447; 01402; 64447; 85025; J1170; J0690 ×2; J3490; J2795; 76942; J7120